=== PATIENT | female | born 1985 | race African-American/Black ===

== ENCOUNTER 2019-03-10 11:12 | Emergency (ER) | payer SELFPAY ==
[~2019-03-10] VITALS: Ht 153 cm; Wt 69.4 kg
--- NOTE | 2019-03-10 11:37 | NUR ---
Pt walked into ED w/ c/o earache for 3 weeks L ear. Pain 8/10 L ear and pt states it radiates to forehead. VSS. No acute distress.
[2019-03-10 11:47] VITALS: BP 107/76
--- NOTE | 2019-03-10 12:24 | NUR ---
ED Nurse Note: Per Dr Murguia, pt will be DC'd.
--- NOTE | 2019-03-10 12:25 | NUR ---
ER DISCHARGE NOTE: Patient is cleared to be discharged per ERMD, pt is aox4, on room air, with stable vital signs. pt was given dc, pt didn't want to sign d/c papers and walked out before signing, pt id band and iv site removed without complications. pt is able to ambulate with steady gait. pt took all belongings from locker #2. Addendum: 03/10/19 at 1422 by [facility] ER DISCHARGE NOTE: Patient is cleared to be discharged per ERMD, pt is aox4, on room air, with stable vital signs. pt was given dc, pt didn't want to sign d/c papers and walked out before signing, pt id band and iv site removed without complications. pt is able to ambulate with steady gait. pt took all belongings.
--- NOTE | 2019-03-10 12:25 | Emergency Room Report ---
History of Present Illness General Chief Complaint: Earache Present Illness HPI 33 YO Female presents to the ED c/o 11/08 in severity Left ear pain, that is constant x 2 weeks. Denies fevers or chills. Denies ear trauma. Denies changes in hearing or swollen tender lymph nodes. Denies ear d/c or bleeding. Allergies: Coded Allergies: No Known Allergies (Unverified , 03/10/19) Patient History Past Medical History: see triage record Past Surgical History: none Pertinent Family History: none Last Menstrual Period: 03/01/19 Now: No Reviewed Nursing Documentation: PMH: Agreed; PSxH: Agreed Review of Systems All Other Systems: negative except mentioned in HPI Physical Exam Vital Signs Date Time Temp Pulse Resp B/P (MAP) Pulse Ox O2 Delivery O2 Flow Rate FiO2 03/10/19 11:27 97.9 62 16 107/76 (86) 98 Room Air Sp02 EP Interpretation: reviewed, normal General Appearance: no apparent distress, alert, GCS 15, non-toxic Head: normocephalic, atraumatic Eyes: bilateral eye normal inspection, bilateral eye PERRL ENT: hearing grossly normal, normal voice, TMs + canals normal Neck: full range of motion Respiratory: lungs clear, normal breath sounds, speaking full sentences Cardiovascular #1: regular rate, rhythm Musculoskeletal: normal range of motion, gait/station normal, non-tender Neurologic: alert, motor strength/tone normal, oriented x3, sensory intact, responsive, speech normal Psychiatric: judgement/insight normal Lymphatic: no adenopathy Medical Decision Making PA Attestation Dr. Steele is my supervising Physician whom patient management has been discussed with. Diagnostic Impression: Primary Impression: Ear pain Qualified Codes: H92.02 - Otalgia, left ear ER Course 33 YO Female presents to the ED c/o 11/08 in severity Left ear pain, that is constant x 2 weeks. Denies fevers or chills. Denies ear trauma. Denies changes in hearing or swollen tender lymph nodes. Denies ear d/c or bleeding. Ddx considered but are not limited to OM, OE, mastoiditis, TM perforation, FB Vital signs: are WNL, pt. is afebrile H&PE are most consistent with otalgia. ORDERS: none required at this time, the diagnosis is clinical ED INTERVENTIONS: None required at this time. DISCHARGE: At this time pt. is stable for d/c to home. Will provide printed patient care instructions, and any necessary prescriptions. Care plan and follow up instructions have been discussed with the patient prior to discharge. Last Vital Signs Date Time Temp Pulse Resp B/P (MAP) Pulse Ox O2 Delivery O2 Flow Rate FiO2 03/10/19 11:47 97.9 16 107/76 98 Room Air 03/10/19 11:27 62 Disposition: HOME, SELF-CARE Condition: Stable Patient Instructions: Earache Additional Instructions: Take medications as directed. Follow up with a Primary Care Provider in 3-5 days, even if your symptoms have resolved. Return sooner to ED if new symptoms occur, or current symptoms become worse. - Please note that this Emergency Department Report was dictated using [employer] technology software, occasionally this can lead to erroneous entry secondary to interpretation by the dictation equipment. Sugey Hoyos Mar 10, 2019 12:25
--- NOTE | 2019-03-10 12:25 | NUR ---
Note raysa in EDM - 03/10/19 at 1254 by [email or web address] ED Nurse Note: Pt states she can't wait longer to see MD and informed of risks. Pt walks out the ED 1225. D/C order present, but pt left before getting D/C packet or being seen by MD. Per DR Murguia, state as D/C and pt didn't sign papers.
== END 2019-03-10 12:50 | disposition home or self-care (01) ==
LOC: EMR 12:47
DX: H92.02 Otalgia, left ear (principal)
CPT/HCPCS: 99281